=== PATIENT | female | born 1965 | race Caucasian/White ===

== ENCOUNTER → 2021-04-03 | Outpatient (CLI) | payer OTHER ==
[~2021-04-03] MED LIST: OXYCONTIN10 M1 PO; SINGULAIR 10 MG10 M1 PO; ULTRAM 50MG TAB50 MG PO
--- NOTE | 2021-04-03 14:57 | 2DMMODE ---
[facility] [place] [address] 2 D/M-MODE ECHOCARDIOGRAM Name: JORGE BAUMANN Room #: REG [facility]#: [id number] Admission: 04/03/21 Attend Phys: Al Ferrell MD Discharge: Date of : 65 Report #: [id number] THIS REPORT FOR: cc: Koat Unger MD, Samuel D. MD Santiago, Patrick MD [facility] ~ APPROVED REPORT Study performed: 04/03/2021 13:24:43 EXAM: Comprehensive 2D, Doppler, and color-flow Echocardiogram Patient Location: Out-Patient Status: routine BSA: 1.86 HR: 72 bpm BP: 126/82 mmHg Rhythm: NSR Other Information Study Quality: Adequate Indications Short of breath. 2D Dimensions RVDd: 27.29 mm IVSd: 10.01 (7-11mm) LVOT Diam: 20.69 (18-24mm) LVDd: 43.01 mm PWd: 9.78 (7-11mm) Ascending Ao: 31.30 (22-36mm) LVDs: 30.38 (25-40mm) Left Atrium: 35.18 (27-40mm) Aortic Root: 34.62 mm Volumes Left Atrial Volume (Systole) Single Plane 4CH: 27.15 mL Single Plane 2CH: 38.30 mL LA ESV Index: 18.00 mL/m2 Aortic Valve AoV Peak Paul.: 1.16 m/s AO Peak Gr.: 5.41 mmHg LVOT Max P.31 mmHg LVOT Max V: 0.91 m/s MARKIE Vmax: 2.63 cm2 [facility] [email or web address] [address] 2 D/M-MODE ECHOCARDIOGRAM Name: JORGE BAUMANN Room #: REG [facility]#: [id number] Admission: 04/03/21 Attend Phys: Elina Hoffmann Discharge: Date of : 65 Report #: [id number] Mitral Valve E/A Ratio: 0.8 MV Decel. Time: 209.52 ms MV E Max Paul.: 0.59 m/s MV A Pual.: 0.73 m/s MV PHT: 60.76 ms IVRT: 96.89 ms Pulmonary Valve PV Peak Paul.: 0.90 m/s PV Peak Gr.: 3.21 mmHg Tricuspid Valve TR Peak Paul.: 2.00 m/s RAP Estimate: 5.00 mmHg TR Peak Gr.: 16.00 mmHg PA Pressure: 21.00 mmHg Left Ventricle The left ventricle is normal size. There is normal LV segmental wall motion. There is normal left ventricular wall thickness. Left ventricular systolic function is normal. LVEF is 60%. Mild diastolic dysfunction is present (impaired relaxation pattern). Right Ventricle The right ventricle is normal size. The right ventricular systolic function is normal. Atria The left atrium size is normal. The right atrium size is normal. Aortic Valve The aortic valve is normal in structure. No aortic regurgitation is present. There is no aortic valvular stenosis. Mitral Valve The mitral valve is normal in structure. Trace mitral regurgitation. No evidence of mitral valve stenosis. Tricuspid Valve The tricuspid valve is normal in structure. Trace tricuspid regurgitation. Estimated PAP is 21mmHg. Pulmonic Valve The pulmonary valve is normal in structure. Trace pulmonic regurgitation. [facility] [place] [address] 2 D/M-MODE ECHOCARDIOGRAM Name: JORGE BAUMANN Room #: REG [facility]#: [id number] Admission: 04/03/21 Attend Phys: Elina Hoffmann Discharge: Date of : 65 Report #: [id number] Great Vessels The aortic root is normal in size. The ascending aorta is normal in size. IVC is normal in size and collapses >50% with inspiration. Pericardium There is no pericardial effusion. <Conclusion> Normal left ventricular size/wall thickness Ejection fraction 60% Grade 1 diastolic dysfunction Normal right ventricular size/function Normal atrial size Color-flow Doppler study was performed of the aortic/mitral/tricuspid/pulmonary valve Normal aortic/mitral valve structure and function Trace tricuspid valve insufficiency Pulmonary systolic pressure estimated 21 mmHg Normal aortic root size No pericardial effusion <ELECTRONICALLY SIGNED> By: Wes Vazquez MD, FAC 04/03/21 [id number] Wes Vazquez MD, [facility] /INF
== END ==
LOC: CV 13:51
PROVIDERS: ATTEND Pediatrics
DX: R05 Cough (principal); R06.00 Dyspnea, unspecified